=== PATIENT | female | born 1995 | race Caucasian/White ===

== ENCOUNTER 2017-05-04 12:40 | Observation (INO) | payer OTHER ==
[~2017-05-04] VITALS: Ht 160 cm; Wt 79.4 kg
[~2017-05-04 12:40] MED LIST: KEFLEX500 M1 PO; NAPROXEN500 MG PO; TOPROL XL25 M1 PO; VISTARIL50 MG PO
--- NOTE | 2017-05-04 13:18 | ED GI/GU/ABDOMINAL COMPLAINT ---
History of Present Illness General Chief Complaint: Abdominal Pain/Flank Pain Stated Complaint: ABDOMINAL PAIN Source: patient, old records Exam Limitations: no limitations Allergies Coded Allergies: NO KNOWN ALLERGIES (12/16/16) Triage Note: PT TO ED WITH C/O UPPER ABD PAIN SINCE LAST NIGHT "I WOKE ME UP, IT WAS ON AND OFF, BUT NOW IT'S CONSTANT, I HAD DIARRHEA THIS MORNING". LAST MENSES: 05/02/17 Triage Nurses Notes Reviewed? yes LMP (ages 10-50): now ? n Is pt currently ? No Onset: Abrupt Duration: day(s): (1), constant Timing: recent history Quality/Severity: moderate, sharpness, severe Severity Numbers: 7 Location: epigastric Radiation: RLQ Activities at Onset: none Prior Abdominal Problems: none No Modifying Factors: none Associated Symptoms: denies HPI: 21-year-old female with history of hypertension presents complaining of waking up with epigastric abdominal pain .She states the pain remains in her epigastric region however now radiates to her right lower quadrant. She reports to nausea and one episode of diarrhea. She denies vomiting chest pain shortness of breath no pain with inspiration no fever no chills no sick contacts. She denies any urinary urgency frequency dysuria. Her last menstrual cycle began 2 days ago. She denies tobacco or alcohol use. She did not eat breakfast this morning no modifying factors or associated symptoms otherwise. (Blake REYES,Romain) Vital Signs & Intake/Output Vital Signs & Intake/Output Vital Signs Date Time Temp Pulse Resp B/P B/P Pulse O2 O2 Flow FiO2 Mean Ox Delivery Rate 05/05 0728 97.9 86 18 128/80 98 Room Air 05/05 0034 98.3 110 18 128/82 99 Nasal 2.0L Cannula 05/05 0027 110 128/82 05/05 0000 Nasal 2.0L Cannula 05/04 2100 96 Nasal 2.0L Cannula 05/04 2040 98.6 105 18 120/84 96 Nasal 2.0L Cannula 05/04 1705 98.4 107 18 136/84 100 Room Air Room Air 05/04 1524 98.2 102 18 131/80 100 Room Air Room Air 05/04 1245 96.7 114 18 158/108 100 Room Air Room Air ED Intake and Output 05/05 0000 05/04 1200 Intake Total 20 Output Total Balance 20 Intake, Oral 20 Patient 175 lb Weight Weight Reported by Patient Measurement Method Reconcile Medications Hydrocodone/Acetaminophen ([place] 5-325 Tablet) 5 MG-325 MG TABLET 1-2 TAB PO Q4-6 PRN PRN pain Metoprolol Succ XL (Toprol XL) 25 MG TAB 0.5 TAB PO QPM HTN (Reported) (Geovanni CURTIS,Jennifer) Past History Travel History Traveled to [place] past 21 day No Medical History Any Pertinent Medical History? see below for history Neurological: NONE EENT: NONE Cardiovascular: hypertension Respiratory: NONE Gastrointestinal: NONE Hepatic: NONE Renal: NONE Musculoskeletal: NONE Psychiatric: anxiety Endocrine: NONE Surgical History Surgical History: non-contributory Psychosocial History What is your primary language British Tobacco Use: Never used ETOH Use: occasional use Illicit Drug Use: denies illicit drug use Family History Hx Contributory? No (Romain Kaiser) Review of Systems Review of Systems Constitutional: Reports: see HPI. Comments Review of systems: See HPI, All other systems negative. Constitutional, no chills no fever, no malaise no weight loss HEENT: no sore throat no congestion, no ear pain Cardiovascular: No chest pain , no palpitation Skin: no rashes, no change in skin Respiratory: No dyspnea no cough no sputum no hemoptysis GI: No nausea no vomiting, no diarrhea, no bloating/constipation : No dysuria No hematuria, no frequency Muscle skeletal: No joint pain, no back pain, no neck pain, Neurologic: , no headache Psych: No stress no depression,. Heme/endocrine: No bruising no bleeding Immunology: No lymphadenopathy (Romain Kaiser) Physical Exam Physical Exam General Appearance: well developed/nourished, no apparent distress, alert Gastrointestinal: soft Comments: Well-developed well-nourished person in no acute distress HEENT: Normal EENT exam; PERRL, EOMI, HEAD is atraumatic. moist mucous membranes. Neck: Supple, normal range of motion Back: Nontender, no CVA tenderness. Full range of motion Cardiovascular: Regular rate and rhythms no murmurs Respiratory: Chest nontender.There were no bony deformities, no asymmetry. No respiratory distress. Patient speaking in full complete sentences. Breath sounds clear to auscultation bilaterally: NO W/R/R Abdomen: Soft, tenderness to palpation over the epigastric region, and right lower quadrant negative Eagle sign there is no right upper quadrant tenderness nondistended, no appreciable organomegaly. Normal bowel sounds. No guarding, No ascites. Extremity: No edema, full range of motion of extremities Neuro: Alert oriented x3, motor sensory normal, There were no obvious focal neurologic abnormalities. Skin: No appreciable rash on exposed skin, skin is warm and dry. Psych: Mood and affect is normal, memory and judgment is normal. Core Measures ACS in differential dx? No Sepsis Present: No Sepsis Focused Exam Completed? No (Blake REYES,Romain) Progress Differential Diagnosis: appendicitis, biliary colic, bowel obstruction, colon cancer, cholecystitis, diverticulitis, gastritis, hernia, inflamm bowel dis, intrauterine , kidney stone, pancreatitis, PID/cervicitis, peptic ulcer , PUD/GERD, perforated viscous, SBO, threatened AB, UTI/pyelo Plan of Care: Orders Procedure Date/time Status Nothing by Mouth 05/04 D Active Add-on Test (ER Only) 05/04 1550 Active PARTIAL THROMBOPLASTIN TIME 05/04 1346 Complete PROTHROMBIN TIME 05/04 1346 Complete LIPASE 05/04 1346 Complete Saline Lock 05/04 1325 Active URINALYSIS 05/04 1251 Complete HUMAN BETA HCG SCREEN 05/04 1251 Complete COMPREHENSIVE METABOLIC PANEL 05/04 1251 Complete CBC WITHOUT DIFFERENTIAL 05/04 1251 Complete Laboratory Tests 05/04/17 1438: Urinalysis LIGHT H, Urine Color YEL, Urine Clarity HAZY H, Urine pH 6.5, Ur Specific [place] 1.025, Urine Protein NEG, Urine Ketones 15 H, Urine Nitrite NEG, Urine Bilirubin NEG, Urine Urobilinogen 0.2, Ur Leukocyte Esterase NEG, Ur Microscopic SEDIMENT EXAMINED, Urine RBC 1-3, Urine WBC RARE, Ur Epithelial Cells MOD H, Urine Bacteria FEW H, Urine Mucus MANY H, Urine Hemoglobin NEG, Urine Glucose NEG 05/04/17 1346: Anion Gap 15, Estimated GFR > 60, BUN/Creatinine Ratio 25.0, Glucose 96, Calcium 9.8, Total Bilirubin 0.9, AST 24, ALT 31, Alkaline Phosphatase 78, Total Protein 7.8, Albumin 4.6, Globulin 3.2, Albumin/Globulin Ratio 1.4, Lipase 71, Total Beta HCG NEGATIVE, PT 11.9, INR 1.13, APTT 32, CBC w Diff NO MAN DIFF REQ, RBC 4.79, MCV 85.4, MCH 29.6, RDW 11.8, MPV 7.5, Gran % 86.1 H, Lymphocytes % 9.1 L, Monocytes % 4.2, Eosinophils % 0.4, Basophils % 0.2, Absolute Granulocytes 13.5 H, Absolute Lymphocytes 1.4, Absolute Monocytes 0.7 H, Absolute Eosinophils 0.1, Absolute Basophils 0, PUBS MCHC 34.7 05/04/17 1325: Lipase Cancelled Labs ordered old records reviewed CAT scan ordered patient medicated with Toradol Zofran and Pepcid morphine IV case d/w and signed out to dr galarza at [address] scan (Romain Kaiser) 4 PM D/W DR HOWARD, SURGICAL PA TRUDI. PATIENT WITH ACUTE APPENDICITIS. IV ABX GIVEN. NPO. (Jennifer Galarza MD) Diagnostic Imaging: Viewed by Me: CT Scan. Discussed w/RAD: CT Scan. Initial ED EKG: none Hand-Off Endorsed To: Jennifer Galarza MD Endorsed Time: 1500 Pending: CT, labs (Romain Kaiser) Diagnostic Imaging: Viewed by Me: Radiology Read, CT Scan. Discussed w/RAD: Radiology Read, CT Scan. Radiology Impression: PATIENT: CORNEL BARLOW PRESENT AGE: 21 PATIENT ACCOUNT NO: [id number] : 95 LOCATION: [facility] ORDERING PHYSICIAN: Romain REYES SERVICE DATE: 05/04/17 EXAM TYPE: CAT - CT ABD & PELVIS W IV CONTRAST EXAMINATION: CT ABDOMEN AND PELVIS WITH CONTRAST CLINICAL INFORMATION: Epigastric pain has transitioned to right lower quadrant pain. Nausea COMPARISON: None TECHNIQUE: Multidetector volumetric imaging was performed of the abdomen and pelvis following IV administration of 94 mL of Optiray 320 intravenous contrast. Sagittal and coronal reformatted images were obtained on the technologist's workstation. DLP: 428 mGy-cm FINDINGS: LUNG BASES : No suspicious abnormality in the visualized lower chest LIVER, GALLBLADDER, AND BILIARY TREE: The liver appears within normal limits. There is no opaque gallstone. There is no biliary dilation. PANCREAS: Within normal limits SPLEEN: Normal ADRENAL GLANDS: Normal KIDNEYS AND URETERS: There is no dilation of the urinary collecting system on either side. There are homogeneous symmetric nephrograms. No suspicious renal mass. BLADDER: The bladder is nearly empty and not well evaluated. No definite abnormality. GASTROINTESTINAL TRACT: There is an acute inflammatory process in the right lower quadrant. There is a spherical 1.7 cm calcification and there is a fluid-filled blind-ending tubular structure which also contains calcification in the right lower quadrant which measures up to 2.1 cm in diameter. There is surrounding stranding. This terminates adjacent to the common iliac vessel origin and there is some surrounding stranding. At the time of this exam there is no drainable abscess or extraluminal gas. This structure appears to arise from the medial lower aspect of the cecum. No evidence of small bowel obstruction. No suspicious abnormality the esophagus ABDOMINAL WALL: No significant hernia is appreciated. LYMPH NODES: There are a few right lower quadrant mesenteric lymph nodes which are likely reactive. VASCULAR: There is no abdominal aortic aneurysm. The portal vein enhances. PELVIC VISCERA: There is a tampon present. The uterus and adnexa are within normal limits. OSSEOUS STRUCTURES: No focal bony lesion IMPRESSION: There is a markedly dilated fluid-filled appendix distal to a 1.7 cm appendicolith. There is surrounding stranding but no evidence of localized drainable abscess, pneumoperitoneum or small bowel obstruction. CT findings of acute appendicitis with impending perforation. DICTATED BY: Bernardo Shelby MD DATE/TIME DICTATED:1532 BOOKMOBILE CLERK:TARIQ DATE/TIME TRANSCRIBED:05/04/171532 CONFIDENTIAL, DO NOT COPY WITHOUT APPROPRIATE AUTHORIZATION. <Electronically signed in Other Vendor System> SIGNED BY: Bernardo Shelby MD 05/04/17 1353 (Geovanni CURTIS,Jennifer) Departure Departure Condition: Stable Clinical Impression Primary Impression: Appendicitis Secondary Impressions: Abdominal pain Qualifiers: Abdominal location: generalized Qualified Code: R10.84 - Generalized abdominal pain Referrals: Terri CURTIS,Amna Shelton (PCP/Family) Departure Forms: Customer Survey General Discharge Information (Romain Kaiser) Departure Time of Disposition: 1716 Disposition: STILL A PATIENT Prescriptions: Current Visit Scripts Hydrocodone/Acetaminophen ([place] 5-325 Tablet) 1-2 TAB PO Q4-6 PRN PRN pain #24 TAB OR/GI Note Spoke With: Jamari Howard DO ED Treatment Decision: CORNEL BARLOW requires urgent operative management or an emergent procedure that cannot be performed in the Emergency Room setting. Transport To: [facility] (Geovanni CURITS,Jennifer) case d/w and signed out to dr galarza at [address] scan (Blake REYES,Romain) 4 PM D/W DR HOWARD, SURGICAL PA TRUDI. PATIENT WITH ACUTE APPENDICITIS. IV ABX GIVEN. NPO. Diagnostic Imaging: Viewed by Me: Radiology Read, CT Scan. Discussed w/RAD: Radiology Read, CT Scan. Radiology Impression: PATIENT: CORNEL BARLOW PRESENT AGE: 21 PATIENT ACCOUNT NO: [id number] : 95 LOCATION: [facility] ORDERING PHYSICIAN: Romain REYES SERVICE DATE: 05/04/17 EXAM TYPE: CAT - CT ABD & PELVIS W IV CONTRAST EXAMINATION: CT ABDOMEN AND PELVIS WITH CONTRAST CLINICAL INFORMATION: Epigastric pain has transitioned to right lower quadrant pain. Nausea COMPARISON: None TECHNIQUE: Multidetector volumetric imaging was performed of the abdomen and pelvis following IV administration of 94 mL of Optiray 320 intravenous contrast. Sagittal and coronal reformatted images were obtained on the technologist's workstation. DLP: 428 mGy-cm FINDINGS: LUNG BASES : No suspicious abnormality in the visualized lower chest LIVER, GALLBLADDER, AND BILIARY TREE: The liver appears within normal limits. There is no opaque gallstone. There is no biliary dilation. PANCREAS: Within normal limits SPLEEN: Normal ADRENAL GLANDS: Normal KIDNEYS AND URETERS: There is no dilation of the urinary collecting system on either side. There are homogeneous symmetric nephrograms. No suspicious renal mass. BLADDER: The bladder is nearly empty and not well evaluated. No definite abnormality. GASTROINTESTINAL TRACT: There is an acute inflammatory process in the right lower quadrant. There is a spherical 1.7 cm calcification and there is a fluid-filled blind-ending tubular structure which also contains calcification in the right lower quadrant which measures up to 2.1 cm in diameter. There is surrounding stranding. This terminates adjacent to the common iliac vessel origin and there is some surrounding stranding. At the time of this exam there is no drainable abscess or extraluminal gas. This structure appears to arise from the medial lower aspect of the cecum. No evidence of small bowel obstruction. No suspicious abnormality the esophagus ABDOMINAL WALL: No significant hernia is appreciated. LYMPH NODES: There are a few right lower quadrant mesenteric lymph nodes which are likely reactive. VASCULAR: There is no abdominal aortic aneurysm. The portal vein enhances. PELVIC VISCERA: There is a tampon present. The uterus and adnexa are within normal limits. OSSEOUS STRUCTURES: No focal bony lesion IMPRESSION: There is a markedly dilated fluid-filled appendix distal to a 1.7 cm appendicolith. There is surrounding stranding but no evidence of localized drainable abscess, pneumoperitoneum or small bowel obstruction. CT findings of acute appendicitis with impending perforation. DICTATED BY: Bernardo Shelby MD DATE/TIME DICTATED:1532 BOOKMOBILE CLERK:TARIQ DATE/TIME TRANSCRIBED:05/04/171532 CONFIDENTIAL, DO NOT COPY WITHOUT APPROPRIATE AUTHORIZATION. <Electronically signed in Other Vendor System> SIGNED BY: Bernardo Shelby MD 05/04/17 1545 (Jennifer Galarza MD) Departure Departure Condition: Stable Clinical Impression Primary Impression: Appendicitis Secondary Impressions: Abdominal pain Qualifiers: Abdominal location: generalized Qualified Code: R10.84 - Generalized abdominal pain Referrals: Terri CURTIS,Amna Shelton (PCP/Family) Departure Forms: Customer Survey General Discharge Information Prescriptions: Current Visit Scripts Oxycodone HCl/Acetaminophen (Percocet 5-325 MG Tablet) 1-2 TAB PO Q4-6 PRN PAIN #36 TAB (Romain Kaiser) Departure Disposition: STILL A PATIENT OR/GI Note Spoke With: Jamari Howard DO ED Treatment Decision: CORNEL BARLOW requires urgent operative management or an emergent procedure that cannot be performed in the Emergency Room setting. Transport To: [facility] (Jennifer Galarza MD)
[2017-05-04 13:58] LABS: ABSOLUTE BASOPHIL COUNT 0 /CUMM (0.0-0.2); ABSOLUTE EOSINOPHIL COUNT 0.1 /CUMM (0.0-0.7); ABSOLUTE GRANULOCYTE CT 13.5 /CUMM (1.4-6.5); ABSOLUTE LYMPH COUNT 1.4 /CUMM (1.2-3.4); ABSOLUTE MONOCYTE COUNT 0.7 /CUMM (0.10-0.60); BASOPHIL % 0.2 % (0.0-2.0); EOSINOPHIL % 0.4 % (0-5); MEAN CORPUSCULAR HGB 29.6 PG (27.0-31.0); MEAN CORPUSCULAR HGB CONC 34.7 G/DL (33.0-37.0); MEAN CORPUSCULAR VOLUME 85.4 FL (81.0-99.0); MEAN PLATELET VOLUME 7.5 FL (7.4-10.4); RBC DISTRIBUTION WIDTH 11.8 % (11.5-14.5); RED BLOOD CELL CT 4.79 /CUMM (4.20-5.40); WHITE BLOOD CELL COUNT 15.7 /CUMM (4.8-10.8)
[2017-05-04 14:17] LABS: GRANULOCYTE % 86.1 % (42.2-75.2); PLATELET COUNT 355 /CUMM (130-400)
--- NOTE | 2017-05-04 15:43 | CT SCAN REPORT ---
EXAMINATION: CT ABDOMEN AND PELVIS WITH CONTRAST CLINICAL INFORMATION: Epigastric pain has transitioned to right lower quadrant pain. Nausea COMPARISON: None TECHNIQUE: Multidetector volumetric imaging was performed of the abdomen and pelvis following IV administration of 94 mL of Optiray 320 intravenous contrast. Sagittal and coronal reformatted images were obtained on the technologist's workstation. DLP: 428 mGy-cm FINDINGS: LUNG BASES: No suspicious abnormality in the visualized lower chest LIVER, GALLBLADDER, AND BILIARY TREE: The liver appears within normal limits. There is no opaque gallstone. There is no biliary dilation. PANCREAS: Within normal limits SPLEEN: Normal ADRENAL GLANDS: Normal KIDNEYS AND URETERS: There is no dilation of the urinary collecting system on either side. There are homogeneous symmetric nephrograms. No suspicious renal mass. BLADDER: The bladder is nearly empty and not well evaluated. No definite abnormality. GASTROINTESTINAL TRACT: There is an acute inflammatory process in the right lower quadrant. There is a spherical 1.7 cm calcification and there is a fluid-filled blind-ending tubular structure which also contains calcification in the right lower quadrant which measures up to 2.1 cm in diameter. There is surrounding stranding. This terminates adjacent to the common iliac vessel origin and there is some surrounding stranding. At the time of this exam there is no drainable abscess or extraluminal gas. This structure appears to arise from the medial lower aspect of the cecum. No evidence of small bowel obstruction. No suspicious abnormality the esophagus ABDOMINAL WALL: No significant hernia is appreciated. LYMPH NODES: There are a few right lower quadrant mesenteric lymph nodes which are likely reactive. VASCULAR: There is no abdominal aortic aneurysm. The portal vein enhances. PELVIC VISCERA: There is a tampon present. The uterus and adnexa are within normal limits. OSSEOUS STRUCTURES: No focal bony lesion IMPRESSION: There is a markedly dilated fluid-filled appendix distal to a 1.7 cm appendicolith. There is surrounding stranding but no evidence of localized drainable abscess, pneumoperitoneum or small bowel obstruction. CT findings of acute appendicitis with impending perforation.
[2017-05-04 16:30] LABS: PT 11.9 SEC (9.4-12.5); PTT 32 SEC (25-37)
--- NOTE | 2017-05-04 16:58 | PN- Student ---
Subjective Subjective: Surgical Consult HPI: 21 year old female with a PMHx of HTN diagnosed this year now on metoprolol presents with a 1-day history of abdominal pain. The patient was awoken from sleep last night with 5/10 epigastric pain that was intermittent. She was able to fall back to sleep. When she woke up naturally at 8am this morning the patient had persistent epigastric pain that radiated to her RLQ and right lower back. This pain gradually became constant and increased in severity to 9/10 around 11am. The patient endorsed mild associated nausea without vomiting. She had one episode of diarrhea this morning. She denied fevers, chills, dysuria, hematuria, CP, dizziness, or SOB. Pts LMP was 05/02/17. Last meal was at 9pm on 05/03/17. Family hx: Dad from [place], HTN multiple paternal family members, mother alive and healthy per report, brother has HTN Social hx: smoked 1/2 pack a day from age [age] now smokes a few cigarretes a week. No ETOH or drug use. Objective Objective: General: awake, alert, oriented, in no acute distress. Cardiac: tachycardia, regular rhythm. S1S2 noted. Respiratory: non-labored breathing. good inspiratory effort. Lungs CTA b/l. Abdomen: No surgical scars. hypoactive bowel sounds. +rovings sign. tenderness to light palpation at mcburneys point. negative de los santos sign. No organomegaly. Extr: motor and sensation grossly intact lower extr b/l. 2+ DP pulses b/l. Skin: warm, dry, no rashes on exposed skin. Results Results: Laboratory Tests 05/04/17 1438: Urinalysis LIGHT H, Urine Color YEL, Urine Clarity HAZY H, Urine pH 6.5, Ur Specific [place] 1.025, Urine Protein NEG, Urine Ketones 15 H, Urine Nitrite NEG, Urine Bilirubin NEG, Urine Urobilinogen 0.2, Ur Leukocyte Esterase NEG, Ur Microscopic SEDIMENT EXAMINED, Urine RBC 1-3, Urine WBC RARE, Ur Epithelial Cells MOD H, Urine Bacteria FEW H, Urine Mucus MANY H, Urine Hemoglobin NEG, Urine Glucose NEG 05/04/17 1346: Anion Gap 15, Estimated GFR > 60, BUN/Creatinine Ratio 25.0, Glucose 96, Calcium 9.8, Total Bilirubin 0.9, AST 24, ALT 31, Alkaline Phosphatase 78, Total Protein 7.8, Albumin 4.6, Globulin 3.2, Albumin/Globulin Ratio 1.4, Lipase 71, Total Beta HCG NEGATIVE, PT 11.9, INR 1.13, APTT 32, CBC w Diff NO MAN DIFF REQ, RBC 4.79, MCV 85.4, MCH 29.6, RDW 11.8, MPV 7.5, Gran % 86.1 H, Lymphocytes % 9.1 L, Monocytes % 4.2, Eosinophils % 0.4, Basophils % 0.2, Absolute Granulocytes 13.5 H, Absolute Lymphocytes 1.4, Absolute Monocytes 0.7 H, Absolute Eosinophils 0.1, Absolute Basophils 0, PUBS MCHC 34.7 05/04/17 1325: Lipase Cancelled Imaging: EXAMINATION: CT ABDOMEN AND PELVIS WITH CONTRAST: IMPRESSION: There is a markedly dilated fluid-filled appendix distal to a 1.7 cm appendicolith. There is surrounding stranding but no evidence of localized drainable abscess, pneumoperitoneum or small bowel obstruction. CT findings of acute appendicitis with impending perforation. Assessment/Plan Assessment: 21 year old female with a history, physical exam and imaging c/w acute appendicitis. Likely appendicolith on CT. The pt requires prompt surgical intervention. She is currently hemodynamically stable. Plan: Prepare for the OR NPO Abx were given in the ED No EKG per anesthesia Will discuss with Dr. Chand and preceptor Perla CHRISTIANSEN
--- NOTE | 2017-05-04 17:32 | History & Physical Pre-Op ---
Samantha Rose 05/04/17 1723: General Information and HPI MD Statement: I have seen and personally examined CORNEL BARLOW and documented this H&P. The patient is a 21 year old F who presented with a patient stated chief complaint of [abdominal pain]. Source of Information: patient, family Exam Limitations: no limitations History of Present Illness: 21 year old female with a PMHx of HTN diagnosed this year now on metoprolol presents with a 1-day history of abdominal pain. The patient was awoken from sleep last night with 5/10 epigastric pain that was intermittent. She was able to fall back to sleep. When she woke up naturally at 8am this morning the patient had persistent epigastric pain that radiated to her RLQ and right lower back. This pain gradually became constant and increased in severity to 9/10 around 11am. The patient endorsed mild associated nausea without vomiting. She had one episode of diarrhea this morning. She denied fevers, chills, dysuria, hematuria, CP, dizziness, or SOB. Pts LMP was 05/02/17. Last meal was at 9pm on 05/03/17. Family hx: Dad from [place], HTN multiple paternal family members, mother alive and healthy per report, brother has HTN Social hx: smoked 1/2 pack a day from age [age] now smokes a few cigarretes a week. No ETOH or drug use. Allergies/Medications Allergies: Coded Allergies: NO KNOWN ALLERGIES (12/16/16) Home Med list Metoprolol Succ XL (Toprol XL) 25 MG TAB 0.5 TAB PO QPM HTN (Reported) Past History Medical History Neurological: NONE EENT: NONE Cardiovascular: hypertension Respiratory: NONE Gastrointestinal: NONE Hepatic: NONE Renal: NONE Musculoskeletal: NONE Psychiatric: anxiety Endocrine: NONE Surgical History Pertinent Surgical History: non-contributory Past Family/Social History Psychosocial History Where Do You Live? Home Who Do You Live With? spouse Services at Home None Primary Language: Somali Smoking Status: Former Smoker ETOH Use: denies use Illicit Drug Use: denies illicit drug use Living Will? no Functional Ability ADLs Independent: dressing, eating, toileting, bathing. Ambulation: independent IADLs Independent: shopping, housework, finances, food prep, telephone, transportation , medication admin. Employment History Employment: [employer] Review of Systems Review of Systems Constitutional: Reports: malaise. EENTM: Reports: no symptoms. Cardiovascular: Reports: no symptoms. Respiratory: Reports: no symptoms. GI: Reports: abdominal pain, diarrhea, nausea. Genitourinary: Reports: no symptoms. Musculoskeletal: Reports: no symptoms. Skin: Reports: no symptoms. Neurological/Psychological: Reports: no symptoms. Hematologic/Endocrine: Reports: no symptoms. Immunologic/Allergic: Reports: no symptoms. All Other Systems: Reviewed and Negative Date of LMP: 05/02/17 Exam & Diagnostic Data Last 24 Hrs of Vital Signs/I&O Vital Signs Date Time Temp Pulse Resp B/P B/P Pulse O2 O2 Flow FiO2 Mean Ox Delivery Rate 05/04 1705 98.4 107 18 136/84 100 Room Air Room Air 05/04 1524 98.2 102 18 131/80 100 Room Air Room Air 05/04 1245 96.7 114 18 158/108 100 Room Air Room Air Intake & Output 05/04 1600 05/04 0800 05/04 0000 Intake Total 0 Output Total Balance 0 Intake, Oral 0 Patient 175 lb Weight Weight Reported by Patient Measurement Method Physical Exam: General: awake, alert, oriented, in no acute distress. Cardiac: tachycardia, regular rhythm. S1S2 noted. Respiratory: non-labored breathing. good inspiratory effort. Lungs CTA b/l. Abdomen: No surgical scars. hypoactive bowel sounds. +rovings sign. tenderness to light palpation at mcburneys point. negative de los santos sign. No organomegaly. Extr: motor and sensation grossly intact lower extr b/l. 2+ DP pulses b/l. Skin: warm, dry, no rashes on exposed skin. Last 24 Hrs of Labs/Jesus: Laboratory Tests 05/04/17 1438: Urinalysis LIGHT H, Urine Color YEL, Urine Clarity HAZY H, Urine pH 6.5, Ur Specific [place] 1.025, Urine Protein NEG, Urine Ketones 15 H, Urine Nitrite NEG, Urine Bilirubin NEG, Urine Urobilinogen 0.2, Ur Leukocyte Esterase NEG, Ur Microscopic SEDIMENT EXAMINED, Urine RBC 1-3, Urine WBC RARE, Ur Epithelial Cells MOD H, Urine Bacteria FEW H, Urine Mucus MANY H, Urine Hemoglobin NEG, Urine Glucose NEG 05/04/17 1346: Anion Gap 15, Estimated GFR > 60, BUN/Creatinine Ratio 25.0, Glucose 96, Calcium 9.8, Total Bilirubin 0.9, AST 24, ALT 31, Alkaline Phosphatase 78, Total Protein 7.8, Albumin 4.6, Globulin 3.2, Albumin/Globulin Ratio 1.4, Lipase 71, Total Beta HCG NEGATIVE, PT 11.9, INR 1.13, APTT 32, CBC w Diff NO MAN DIFF REQ, RBC 4.79, MCV 85.4, MCH 29.6, RDW 11.8, MPV 7.5, Gran % 86.1 H, Lymphocytes % 9.1 L, Monocytes % 4.2, Eosinophils % 0.4, Basophils % 0.2, Absolute Granulocytes 13.5 H, Absolute Lymphocytes 1.4, Absolute Monocytes 0.7 H, Absolute Eosinophils 0.1, Absolute Basophils 0, PUBS MCHC 34.7 05/04/17 1325: Lipase Cancelled Diagnostic Data Other Results EXAMINATION: CT ABDOMEN AND PELVIS WITH CONTRAST: IMPRESSION: There is a markedly dilated fluid-filled appendix distal to a 1.7 cm appendicolith. There is surrounding stranding but no evidence of localized drainable abscess, pneumoperitoneum or small bowel obstruction. CT findings of acute appendicitis with impending perforation. Assessment/Plan Assessment/Plan: Assessment: 21 year old female with a history, physical exam and imaging c/w acute appendicitis. Likely appendicolith on CT. The pt requires prompt surgical intervention. She is currently hemodynamically stable. Plan: Prepare for the OR NPO Abx were given in the ED No EKG per anesthesia Will discuss with Dr. Chand As Ranked By This Provider Problem List: 1. Acute appendicitis Jagruti NAYLORJamari 05/04/17 1900: Attending MD Review Statement Attending Statement Attending MD Statement: examined this patient, discuss w/resident/PA/BOILER ROOM OPERATOR, agreed w/resident/PA/BOILER ROOM OPERATOR, discussed with family, reviewed images Attending Assessment/Plan: Patient seen and examined, agree with above. Abdominal pain since this AM. Now more in RLQ. AVSS. Abd-soft, +RLQ tenderness. CT - Markedly dilated appendix with a big appendicolith. Labs reviewed. Will admit, NPO/IVF/IV Abx, plan for Lap Appy today. D/W patient, family, and ED staff.
--- NOTE | 2017-05-04 19:09 | Operative Report ---
Operative/Inv Procedure Report Surgery Date: 05/04/17 Name of Procedure: Laparoscopic appendectomy Pre-Operative Diagnosis: Acute appendicitis Post-Operative Diagnosis: Same Estimated Blood Loss: less than 50ml Surgeon/Interpretive Program Coordinator: Jamari Muñoz Anesthesia: general endotracheal tube IV Fluids: 1200 cc Drains: None Specimens: Appendix Complications: None Condition: Stable Operative Indication: This is a 21-year-old female who presented to the emergency room with abdominal pain. After appropriate workup was completed the patient was diagnosed with acute appendicitis. A laparoscopic possible open appendectomy was discussed in detail. All risks including but not limited to bleeding, infection, and injury to surrounding bowel/structures were discussed in detail. The patient and the family understood everything and decided to proceed. Operative/Procedure Note Note: The patient was brought to the operating room and placed on the table in supine position. Venodyne stockings were placed and adequate general endotracheal anesthesia was obtained. The patient was prepped and draped in standard surgical fashion. Began the procedure by making a 2 cm transverse incision in the infraumbilical crease. Incision was carried down to the fascia. Once the fascia was clearly visualized it was picked up between 2 Rhonda clamps and divided in the midline. Once we entered the peritoneum 2 stay 0 Vicryl sutures were placed on each side and a 12 mm blunt port was inserted. The abdominal cavity was insufflated to 15 mmHg. And a 10 mm 30 laparoscope was introduced. Upon initial examination no obvious gross pathology was seen, some hyperemia and inflammatory reaction was noted in the right lower quadrant. Accessory trocars were placed, both 5 mm, one in the left lower quadrant and one suprapubic. Ascending colon was identified and traced proximally, terminal ileum was identified, and we did note the appendix coursing into the pelvis. The base of the appendix was identified and appeared healthy. Distal appendix was markedly dilated and thickened and appeared ischemic. Using blunt dissection and harmonic scalpel the appendix was carefully dissected away from surrounding structures. Once the appendix was away from the omentum and the sidewall the mesoappendix was divided using Harmonic scalpel maintaining hemostasis until the appendiceal base was clearly visualized and freely up in the air. At that point we switched to a 5 mm laparoscope and a 45 mm elias Endo JONELLE load was inserted and the base was transected. The appendix was placed in an Endobag and removed through the umbilical trocar site. The abdominal cavity was reinsufflated and we switched back to a 10 mm laparoscope. Staple line was examined and some bleeding was noted, that was controlled using endoclips. No other abnormalities were noted. The pelvis and the right lower quadrant were irrigated until clear. All ports were removed under direct visualization, no obvious bleeding was noted. The umbilical trocar site was closed using 0 Vicryl suture. The skin was closed using 4-0 Monocryl. Steri-Strips and dressings were placed. The patient was successfully extubated and transferred to the recovery room in stable condition. The patient tolerated procedure well with no complications. Findings: Markedly dilated, necrotic appendix, foul smelling, no perforation, large appendicolith CC: Terri CURTIS,Amna Shelton
[2017-05-04 20:40] VITALS: BP 120/84
--- NOTE | 2017-05-04 22:08 | PN- General Surgery ---
Subjective Subjective: Patient seen and evaluated for postoperative check status post laparoscopic appendectomy. She is resting comfortably in bed with family at bedside. She has been out of bed and ambulated. She endorses urinating, but is not had flatus/BM. Of note, patient reports moderate amount of postoperative nausea and has vomited 1. Otherwise, patient is doing well. She currently denies chest pain, palpitations, dyspnea. Patient has no further questions or concerns at this time. Objective Vital Signs and I&Os Vital Signs Date Time Temp Pulse Resp B/P B/P Pulse O2 O2 Flow FiO2 Mean Ox Delivery Rate 05/04 2040 98.6 105 18 120/84 96 Nasal 2.0L Cannula 05/04 1705 98.4 107 18 136/84 100 Room Air Room Air 05/04 1524 98.2 102 18 131/80 100 Room Air Room Air 05/04 1245 96.7 114 18 158/108 100 Room Air Room Air Intake & Output 05/04 1600 05/04 0800 05/04 0000 05/03 1600 05/03 0800 05/03 0000 Intake Total 0 Output Total Balance 0 Intake, Oral 0 Patient 175 lb Weight Weight Reported by Patient Measurement Method Physical Exam: General: Young female lying supine in bed, answering questions verbally, no acute distress Cardiac: Regular rate and rhythm Pulmonary: Clear to auscultation and anterior/lateral lung [place], no crackles Abdomen: Surgical wounds are everted with Steri-Strips/gauze/Tegaderm, they're clean/dry/intact, bowel sounds present, no guarding/rigidity/distention Extremities: Feet are warm and well perfused, no edema Neuro: Awake, alert, oriented 3 Current Medications: Current Medications Sig/Víctor Start time Last Medication Dose Route Stop Time Status Admin Acetaminophen 650 MG Q6PRN PRN 05/04 2045 AC PO Ampicillin Sodium/ 3,000 MG Q6 05/049 AC Sulbactam Sodium IV 05/05 2358 Sodium Chloride 100 ML Ampicillin Sodium/ 0 .STK-MED ONE 05/04 1617 DC Sulbactam Sodium .ROUTE Ampicillin Sodium/ 3,000 MG ONCE ONE 05/04 1600 DC 05/04 Sulbactam Sodium IV 05/04 1629 1624 Sodium Chloride 100 ML Famotidine 0 .STK-MED ONE 05/04 1342 DC IV Famotidine 20 MG ONCE ONE 05/04 1330 DC 05/04 IV 05/04 1331 1352 Ketorolac 0 .STK-MED ONE 05/04 1342 DC Tromethamine .ROUTE Ketorolac 30 MG ONCE ONE 05/04 1330 DC 05/04 Tromethamine IV 05/04 1331 1352 Metoprolol Succinate 12.5 MG QPM 05/04 2200 DC PO Morphine Sulfate 4 MG ONCE ONE 05/04 1730 DC IV 05/04 1731 Morphine Sulfate 0 .STK-MED ONE 05/04 1702 DC .ROUTE Morphine Sulfate 4 MG ONCE ONE 05/04 1530 DC 05/04 IV 05/04 1531 1530 Morphine Sulfate 0 .STK-MED ONE 05/04 1522 DC .ROUTE Morphine Sulfate 0 .STK-MED ONE 05/04 1341 DC .ROUTE Morphine Sulfate 2 MG ONCE ONE 05/04 1330 DC 05/04 IV 05/04 1331 1352 Ondansetron HCl 4 MG Q8P PRN 05/04 2045 AC 05/04 IV 2110 Ondansetron HCl 0 .STK-MED ONE 05/04 1342 DC .ROUTE Ondansetron HCl 4 MG ONCE ONE 05/04 1330 DC 05/04 IV 05/04 1331 1352 Oxycodone/ 1 TAB Q4P PRN 05/04 1930 AC Acetaminophen PO Oxycodone/ 2 TAB Q4P PRN 05/04 193 AC Acetaminophen PO Sodium Chloride 1,000 ML BOLUS ONE 05/04 1330 DC 05/04 IV 05/04 1429 1352 Results Last 48 Hours of Labs: Laboratory Tests 05/04 05/04 1438 1346 Chemistry Sodium (137 - 145 mmol/L) 142 Potassium (3.5 - 5.1 mmol/L) 3.7 Chloride (98 - 107 mmol/L) 104 Carbon Dioxide (22 - 30 mmol/L) 23 Anion Gap (5 - 16) 15 BUN (7 - 17 mg/dL) 15 Creatinine (0.5 - 1.0 mg/dL) 0.6 Estimated GFR (>60 ml/min) > 60 BUN/Creatinine Ratio (7 - 25 %) 25.0 Glucose (65 - 99 mg/dL) 96 Calcium (8.4 - 10.2 mg/dL) 9.8 Total Bilirubin (0.2 - 1.3 mg/dL) 0.9 AST (14 - 36 U/L) 24 ALT (9 - 52 U/L) 31 Alkaline Phosphatase (<127 U/L) 78 Total Protein (6.3 - 8.2 g/dL) 7.8 Albumin (3.5 - 5.0 g/dL) 4.6 Globulin (1.9 - 4.2 gm/dL) 3.2 Albumin/Globulin Ratio (1.1 - 2.2 %) 1.4 Lipase (23 - 300 U/L) 71 Total Beta HCG (NEGATIVE) NEGATIVE Coagulation PT (9.4 - 12.5 SEC) 11.9 INR (0.90 - 1.19) 1.13 APTT (25 - 37 SEC) 32 Hematology CBC w Diff NO MAN DIFF REQ WBC (4.8 - 10.8 /CUMM) 15.7 H RBC (4.20 - 5.40 /CUMM) 4.79 Hgb (12.0 - 16.0 G/DL) 14.2 Hct (37 - 47 %) 41.0 MCV (81.0 - 99.0 FL) 85.4 MCH (27.0 - 31.0 PG) 29.6 RDW (11.5 - 14.5 %) 11.8 Plt Count (130 - 400 /CUMM) 355 MPV (7.4 - 10.4 FL) 7.5 Gran % (42.2 - 75.2 %) 86.1 H Lymphocytes % (20.5 - 51.1 %) 9.1 L Monocytes % (1.7 - 9.3 %) 4.2 Eosinophils % (0 - 5 %) 0.4 Basophils % (0.0 - 2.0 %) 0.2 Absolute Granulocytes (1.4 - 6.5 /CUMM) 13.5 H Absolute Lymphocytes (1.2 - 3.4 /CUMM) 1.4 Absolute Monocytes (0.10 - 0.60 /CUMM) 0.7 H Absolute Eosinophils (0.0 - 0.7 /CUMM) 0.1 Absolute Basophils (0.0 - 0.2 /CUMM) 0 PUBS MCHC (33.0 - 37.0 G/DL) 34.7 Urines Urinalysis LIGHT H Urine Color (YEL,AMB,STR) YEL Urine Clarity (CLEAR) HAZY H Urine pH (5.0 - 8.0) 6.5 Ur Specific [place] (1.001 - 1.035) 1.025 Urine Protein (NEG,<30 MG/DL) NEG Urine Ketones (NEG) 15 H Urine Nitrite (NEG) NEG Urine Bilirubin (NEG) NEG Urine Urobilinogen (0.1 - 1.0 EU/dl) 0.2 Ur Leukocyte Esterase (NEG) NEG Ur Microscopic SEDIMENT EXAMINED Urine RBC (0 - 5 /HPF) 1-3 Urine WBC (0 - 2 /HPF) RARE Ur Epithelial Cells (NONE,FEW) MOD H Urine Bacteria (NEG/NONE) FEW H Urine Mucus (FEW,NONE) MANY H Urine Hemoglobin (NEG) NEG Urine Glucose (N MG/DL) NEG 05/04 1325 Chemistry Lipase Cancelled Assessment/Plan Assessment/Plan This is a 21-year-old female with past medical history significant for hypertension who is postop day #0 status post laparoscopic appendectomy. Patient is progressing well. She has remained hemodynamically stable and pain control. -Continue regular diet -Continue IV Unasyn while inpatient. No need for antibiotics upon discharge -Continue current pain regimen -Monitor vitals -Monitor I's and O's -23 hour observation. Likely discharge tomorrow morning. Core Measures Venous Thromboembolism VTE Risk Factors Surgery No Mechanical VTE Prophylaxis d/t Early Ambulation No VTE Pharm Prophylaxis d/t LowRisk-No Interven Req'd
[2017-05-05 00:34] VITALS: BP 128/82
[2017-05-05] MEDS ORDERED: PERCOCET 5-3251 EACH PO (06:35)
--- NOTE | 2017-05-05 06:42 | Patient Discharge Instructions ---
Discharge Instructions General Discharge Information You were seen/treated for: Acute appendicitis You had these procedures: Laparoscopic appendectomy Watch for these problems: Increasing pain, nausea, vomitting. Inability to urinate or move bowels. Increasing redness around incisions. Drainage of any type from incisions. Fever greater than 101.5 Do not soak the wound: Yes No bath, but you may shower: Yes Other wound care: Your incisions were closed with absorbable sutures, you will not need to have them removed. Please keep them clean and dry. Special Instructions: Advance your diet slowly as tolerated. Please follow up with Primary Care Physician so that your heart rate can continue to be monitored while you are on metoprolol. Diet Continue normal diet: Yes Recommended Diet: Regular Activity Full Activity/No Limits: No Activity Self Limited: Yes Pounds, do NOT lift more than: 10 Acute Coronary Syndrome Inclusion Criteria At DC or during hospital stay patient has or had the following: ACS DIAGNOSIS No Discharge Core Measures Meds if any: Prescribed or Continued at Discharge Meds if any: NOT Prescribed or Continued at Discharge Congestive Heart Failure Inclusion Criteria At DC or during hospital stay patient has or had the following: CHF DIAGNOSIS No Discharge Core Measures Meds if any: Prescribed or Continued at Discharge Meds if any: NOT Prescribed or Continued at Discharge Cerebrovascular accident Inclusion Criteria At DC or during hospital stay patient has or had the following: CVA/TIA Diagnosis No Discharge Core Measures Meds if any: Prescribed or Continued at Discharge Meds if any: NOT Prescribed or Continued at Discharge Venous thromboembolism Inclusion Criteria VTE Diagnosis No VTE Type NONE VTE Confirmed by (Test) NONE Discharge Core Measures - Per Current guidelines, there needs to be overlap - treatment for the first 5 days of Warfarin therapy. - If discharged on Warfarin prior to 5 days of - overlap therapy, the patient will need to be - assessed for post discharge needs including - *Post discharge parental anticoagulation - *Warfarin and/or parental anticoagulation education - *Follow up date to check INR post discharge At least 5 days overlap therapy as Inpatient No Meds if any: Prescribed or Continued at Discharge Note: Overlap Therapy is Warfarin and Anticoagulant Meds if any: NOT Prescribed or Continued at Discharge
--- NOTE | 2017-05-05 06:45 | Surg Short-stay <48hrs Dis Sum ---
Visit Information Visit Dates Admission Date: 05/04/17 Discharge Date: 05/05/2017 Surgical Short Stay DC Summary Admission Diagnosis: Acute appendicitis Final Diagnosis: same, now s/p laparoscopic appendectomy Procedure(s): Laparoscopic appendectomy Summary/Significant Findings: Brought in to OR from ER after CT/symptomatic findings of acute appendicitis. Underwent laparoscopic appendectomy. Tolerated procedure, placed in observation status post op for monitoring of heart rate and administration of IV antibiotics. Diet advanced and tolerated. Voided spontaneously. Vital signs remained stable and within normal limits. Pain controlled with PO meds. Appropriate for discharge POD 1. Condition at Discharge: Stable Discharge Disposition: home or self care Discharge instructions provided to patient/family: Yes Post discharge follow-up plan: Follow up with Dr. Chand in 1 week from date of surgery.
[2017-05-05 07:28] VITALS: BP 128/80
--- NOTE | 2017-05-05 07:56 | PN- General Surgery ---
Subjective Subjective: No acute post op or overnight events. Pain controlled. Denies chest pain, sob, difficulty breathing. Had one episode of post op emesis but was able to tolerate food after and felt better. has been voiding. Objective Vital Signs and I&Os Vital Signs Date Time Temp Pulse Resp B/P B/P Pulse O2 O2 Flow FiO2 Mean Ox Delivery Rate 05/05 0728 97.9 86 18 128/80 98 Room Air 05/05 0034 98.3 110 18 128/82 99 Nasal 2.0L Cannula 05/05 0027 110 128/82 05/05 0000 Nasal 2.0L Cannula 05/04 2100 96 Nasal 2.0L Cannula 05/04 2040 98.6 105 18 120/84 96 Nasal 2.0L Cannula 05/04 1705 98.4 107 18 136/84 100 Room Air Room Air 05/04 1524 98.2 102 18 131/80 100 Room Air Room Air 05/04 1245 96.7 114 18 158/108 100 Room Air Room Air Intake & Output 05/05 0800 05/05 0000 05/04 1600 05/04 0800 05/04 0000 05/03 1600 Intake Total 20 0 Output Total 600 Balance -600 20 0 Intake, Oral 20 0 Output, Urine 600 Patient 175 lb 175 lb Weight Weight Reported by Patient Measurement Method Physical Exam: General: Alert and oriented x3, no acute distress Cardiac: 100 bpm, s1s2 Pulm: CTA bialterally Abdomen: Softly distended, susanna-incisional tenderness, dressings dry and intact Extremities: Moves all extremities, distal sensation intact, skin warm and well perfused. DP pulses palpable. Calves soft and nontender bilaterally Assessment/Plan Assessment/Plan This is a 21 year old female, pmh htn, s/p lap appy, pod 1 Placed in observation status for iv hydration and iv abx administration -DC iv fluids this am -Continue current po pain regimen -Continue diet as tolerated -OOB -DC to home later this am -Will nikita Chand Core Measures Venous Thromboembolism VTE Risk Factors Surgery No Mechanical VTE Prophylaxis d/t Early Ambulation No VTE Pharm Prophylaxis d/t LowRisk-No Interven Req'd
[2017-05-05 08:28] LABS: ABSOLUTE BASOPHIL COUNT 0 /CUMM (0.0-0.2); ABSOLUTE EOSINOPHIL COUNT 0 /CUMM (0.0-0.7); ABSOLUTE GRANULOCYTE CT 16.5 /CUMM (1.4-6.5); ABSOLUTE MONOCYTE COUNT 0.7 /CUMM (0.10-0.60); BASOPHIL % 0 % (0.0-2.0); EOSINOPHIL % 0 % (0-5); GRANULOCYTE % 90.4 % (42.2-75.2); HEMATOCRIT 36.8 % (37-47); MEAN CORPUSCULAR HGB 29.9 PG (27.0-31.0); MEAN CORPUSCULAR HGB CONC 34.6 G/DL (33.0-37.0); MEAN CORPUSCULAR VOLUME 86.6 FL (81.0-99.0); MEAN PLATELET VOLUME 8.3 FL (7.4-10.4); PLATELET COUNT 330 /CUMM (130-400); RED BLOOD CELL CT 4.25 /CUMM (4.20-5.40); WHITE BLOOD CELL COUNT 18.3 /CUMM (4.8-10.8)
[2017-05-05] MEDS ORDERED: NORCO 5-325 TA1 EACH PO (11:14)
== END 2017-05-05 11:35 ==
LOC: ERH 12:40 → PACUH 19:16 → ENRESERV 19:20 → ENTRNSPT 19:48 → EDTRNSPTSTS 20:18 → 2NA 20:26 → CMPTRNSPT 21:25 → ENPENDDIS 05-05 09:10 → 2NA 05-05 11:35
PROVIDERS: Physician Assistant Medical; Physician Assistant Surgical
DX: K35.80 Unspecified acute appendicitis (principal); I10 Essential (primary) hypertension; R10.9 Unspecified abdominal pain
CPT/HCPCS: 6030; 36415; 74177; 81001; 82436; 88304; 96374; 96375; 96376; G0378; J0690; J1885; J2175; J2250; J2405; J3010